=== PATIENT | female | born 1970 | race Two or more races ===

== ENCOUNTER → 2017-07-26 | Outpatient (CLI) | payer OTHER ==
[~2017-07-26] MED LIST: LIDOCAINE 1% Multi-Dose 50 ML VIAL. INJ; LIDOCAINE 2%/EPI 1:100,000 20 ML VIAL. IJ
== END | disposition home or self-care (01) ==
LOC: US 14:04
DX: C50.912 Malignant neoplasm of unspecified site of left female breast (principal); R92.8 Other abnormal and inconclusive findings on diagnostic imaging of breast
CPT/HCPCS: 19081; 19083; 19084; 76942; 77065; 88305; 88361; C1713

== ENCOUNTER 2017-11-28 08:09 | Observation (INO) | payer OTHER ==
[~2017-11-28] VITALS: Ht 162.6 cm; Wt 71.2 kg
[~2017-11-28 08:09] MED LIST changes: +HYDROmorphone 2 MG/ML VIAL IV PRN; +IV RINGERS,LACTATED 1000ML 1,000 ML IV SCH; -LIDOCAINE 1% Multi-Dose 50 ML VIAL. INJ; +LIDOCAINE 1% PF 2 ML VIAL. ID PRN; -LIDOCAINE 2%/EPI 1:100,000 20 ML VIAL. IJ; +MELA3TAB2 PO; +MULT1TAB52 PO; +ONDANSETRON PF 4 MG/2 ML VIAL. IV PRN; +PROCHLORPERAZINE 10 MG/2 ML VIAL. IV PRN; +fentaNYL PF VIAL 100 MCG/2 ML VIAL IV PRN
[2017-11-28] MEDS ORDERED: ISOSULFAN BLUE 50 MG/5 ML VIAL. SQ ONE (08:29)
[2017-11-28] MEDS ORDERED: LIDOCAINE WITH 8.4% SOD BICARB 3 ML DISP.SYRIN. INJ ONE (08:30)
[2017-11-28 08:57] LABS: U PREG PATIENT NEGATIVE (NEG)
[2017-11-28] MEDS ORDERED: MIDAZOLAM HCL/PF 2 MG/2 ML VIAL. ONE (09:10)
[2017-11-28] MEDS ORDERED: PROPOFOL 20 ML IV ONE (09:10)
[2017-11-28] MEDS ORDERED: DEXAMETHASONE SOD PHOS 20 MG/5 ML VIAL. ONE (09:10)
[2017-11-28] MEDS ORDERED: fentaNYL PF VIAL 100 MCG/2 ML VIAL ONE ×3 (09:10→13:15)
[2017-11-28] MEDS ORDERED: ONDANSETRON PF 4 MG/2 ML VIAL. ONE (09:10)
[2017-11-28] MEDS ORDERED: ePHEDrine PF IN SALINE 50 MG/5 ML DISP.SYRIN IV ONE (10:03)
--- NOTE | 2017-11-28 10:43 | RAD ---
Left breast radionuclide sentinel node localization, 11/28/2017: HISTORY: Breast cancer Under aseptic conditions and utilizing ethyl chloride spray for topical anesthesia, 1.1 mCi of filtered technetium 99m sulfur colloid mixed with 1 cc of 0.5% buffered lidocaine was injected subdermally in the periareolar region in 4 divided doses. No imaging was performed. The patient was sent to surgery in good condition. Electronically signed by: Vamsi Mills MD (11/28/2017 10:40 AM) [facility]
[2017-11-28] MEDS ORDERED: KETOROLAC 30 MG/ML INJ FOR OR. INJ ONE (11:20)
[2017-11-28] MEDS ORDERED: IV 1/2 NORMAL SALINE 1,000 ML IV SCH (12:48)
[2017-11-28] MEDS ORDERED: ONDANSETRON PF 4 MG/2 ML VIAL. IV PRN (13:00)
[2017-11-28] MEDS ORDERED: MORPHINE SULFATE 2 MG/ML VIAL. IV PRN (13:00)
[2017-11-28] MEDS ORDERED: oxyCODONE/APAP 5/325 1 TAB TABLET PO PRN (13:00)
[2017-11-28] MEDS ORDERED: 0.9 % SODIUM CHLORIDE 10 ML DISP.SYRIN. IV PRN (13:00)
--- NOTE | 2017-11-28 13:26 | PDOC4 ---
Operative Note Operative Note Operative Note: Preoperative Diagnosis: L breast cancer Postoperative Diagnosis: Same Procedure: Left simple mastectomy, sentinel lymph node biopsy, axillary dissection Surgeon: John Paul Anesthesia: Gen EBL: 100 ml Specimen: L breast, sentinel lymph node, axillary contents to pathology Drains: 19 Fr DENA drain Complications: None Indication: The patient is a 47 year old female who was recently diagnosed with multifocal left breast cancer. The plan is to proceed with a left simple mastectomy and sentinel lymph node biopsy Description: Patient was taken initially to radiology where she underwent injection of technetium sulfur colloid. She was then taken the operating room and placed supine on the operating table. Gen. anesthesia was performed. The left breast and axilla was prepped with ChloraPrep and draped in standard surgical manner. Five mL of Lymphazurin were injected deep to the nipple areolar complex. Several minutes were allowed to elapse. An elliptical tracing was made with a marker around the nipple area complex extending from the medial to lateral aspect of the breast. The superior lateral aspect of the tracing was then opened with a scalpel. Dissection was carried down toward the axillary tissues. There was an area of focal increased nuclear uptake correlating to a sentinel lymph node. Dissection in this area showed a blue staining lymphatic heading toward the node. The node was fully excised and sent to pathology. Frozen section confirmed the presence of metastatic disease in this sentinel node. We then proceeded with the full mastectomy and axillary dissection. With a scalpel the skin was opened along the prior elliptical tracing. The subcutaneous flaps were then developed starting initially with the superior flap. The skin was mobilized from the deeper breast parenchyma, and the dissection was carried superiorly to just below the level of the clavicle. In a similar manner the inferior flap was developed which included the inframammary fold. In a medial to lateral fashion the breast was taken off of the chest wall. Several blood vessels were readily controlled with cautery. A few larger vessels were ligated with 2-0 Vicryl. The breast was then fully excised and marked with a stitch at the 12 o'clock position and sent to pathology for evaluation. We then began the axillary dissection. The borders of the dissection included the axillary vein superiorly, the pectoralis muscle medially , and the latissimus laterally. In a superior to inferior manner the adipose and lymphatic contents of the axilla were mobilized from the surrounding structures. Both the thoracodorsal and long thoracic nerves were identified and stimulated appropriately. Care was taken to ensure the nerves were preserved. Several blood vessels supplying the axillary contents were also ligated with 2- 0 Vicryl. Contents were then fully excised and sent to pathology for evaluation. Hemostasis was good and no other abnormalities were identified. A 19 Mongolian round Ar drain was left in the chest wall which exited inferiorly. The subcutaneous tissue was closed with interrupted 3-0 Vicryl. The skin was approximated with a 4-0 running Monocryl suture. A sterile OpSite dressing was then applied. The patient tolerated the procedure well and was sent to the recovery room in stable condition. At the end of the case all counts were correct. JC GUERRERO MD Nov 28, 2017 13:25
[2017-11-28] MEDS: fentaNYL PF VIAL 100 MCG/2 ML VIAL IV PRN ×2 (13:40→13:54)
[2017-11-28 14:00] VITALS: BP 119/79
[2017-11-28 14:15] VITALS: BP 112/76
[2017-11-28 14:45] VITALS: BP 116/76
[2017-11-28 15:00] VITALS: BP 110/72
[2017-11-28] MEDS: MORPHINE SULFATE 2 MG/ML VIAL. IV PRN ×2 (15:08→17:44)
[2017-11-28 19:15] VITALS: BP 112/74
[2017-11-28 23:34] VITALS: BP 113/72
[2017-11-29] MEDS: oxyCODONE/APAP 5/325 1 TAB TABLET PO PRN ×2 (02:06→10:02)
[2017-11-29 03:18] VITALS: BP 104/69
[2017-11-29 07:00] VITALS: BP 104/73
--- NOTE | 2017-11-29 09:06 | DISCH ---
DISCHARGE INSTRUCTIONS Condition on Discharge Condition on Discharge: Stable Activity After Discharge Activity Instructions for Disc: Activity as tolerated Other activity instructions: keep incision dry, dressing in place Lifting Instructions after Dis: No heavy lifting, No pulling or pushing Exercise Instruction after Dis: Progress as tolerated Driving Instructions after Dis: Do not drive today Weight Bearing Status after Di: No restrictions Diet after Discharge Diet after Discharge: Regular Wound Incision Care Wound/Incision Care: Reinforce dressing PRN Other wound/incision instructi: drain care-empty 2x a day, record Contacting the DR. after DC Call your doctor for: Concerns you may have Follow-Up Follow up with: Dr Coker 1 week, call to schedule IRASEMA PULIDO APRN Nov 29, 2017 09:06
[2017-11-29] MEDS ORDERED: OXYC1TAB7 PO (09:07)
--- NOTE | 2017-11-29 09:10 | PDOC3 ---
Discharge Summary Visit Information Date of Admission: Nov 28, 2017 Date of Discharge: Nov 29, 2017 Admitting Diagnosis: left breast cancer Final Diagnosis left breast cancer Brief Hospital Course Allergies Allergies Coded Allergies Type Severity Reaction Last Updated Verified No Known Drug Allergies 11/28/17 No Vital Signs Vital Signs Date Time Temp Pulse Resp B/P (MAP) Pulse Ox O2 Delivery O2 Flow Rate FiO2 11/29/17 07:00 98.1 74 16 104/73 (83) 99 Room Air 98.1 11/29/17 03:06 10.0 Lab Results Laboratory Tests Test 11/28/17 08:43 Urine Test Negative (NEG) Brief Hospital Course Ms. Marquez is a 47 old female who presented with left breast cancer. She underwent Left simple mastectomy, sentinel lymph node biopsy, axillary dissection. Postoperatively tolerating diet, ambulating, and pain managed. Ready for discharge home. Will discharge with drain in place. Discharge Information Condition at Discharge: Stable Follow Up: Weeks (1) Disposition/Orders: D/C to Home Scheduled Melatonin (Melatonin) 3 Mg Tablet, 1 TAB PO QHS, #30 Ref 2 (Reported) Entered as Reported by: TASHIA DEJESUS on 11/27/171509 Last Taken: Unknown Dose on 11/12/17 Last Action: HELD on 11/28/17 1341 by JC GUERRERO Multivitamin (Multivitamins) 1 Each Tablet, 1 TAB PO DAILY, #90 Ref 3 (Reported) Entered as Reported by: TASHIA DEJESUS on 11/27/171509 Last Taken: Unknown Dose on 11/12/17 Last Action: HELD on 11/28/17 1341 by JC GUERRERO Scheduled PRN Oxycodone Hcl/Acetaminophen (Oxycodone-Acetaminophen 5-325) 1 Each Tablet, 1 TAB PO PRN Q4HRS PRN for MILD PAIN, 1ST CHOICE, #30 Ref 0 Prescribed by: Marysol Ballard on 11/29/17 09 MARYSOL BALLARD APRN Nov 29, 2017 09:09
== END 2017-11-29 12:25 | disposition home or self-care (01) ==
LOC: SURG 08:09 → 4 NORTH 12:48
PROVIDERS: ADMIT Surgery; ATTEND Surgery
DX: C50.912 Malignant neoplasm of unspecified site of left female breast (principal); Z85.3 Personal history of malignant neoplasm of breast
CPT/HCPCS: 19303; 38525; 38792; 81025; 96374; 96376; 97161; 97165; A7015; A9541; G0378; G0379; J0690; J1100; J1885; J2250; J2270; J2405; J2704; J3010; J7120; Q9968

== ENCOUNTER → 2017-12-25 | Outpatient (CLI) | payer OTHER ==
[2017-11-29 07:00] VITALS: BP 104/73
[~2017-12-25] MED LIST changes: -HYDROmorphone 2 MG/ML VIAL IV PRN; -IV RINGERS,LACTATED 1000ML 1,000 ML IV SCH; -LIDOCAINE 1% PF 2 ML VIAL. ID PRN; -ONDANSETRON PF 4 MG/2 ML VIAL. IV PRN; +OXYC1TAB7 PO; -PROCHLORPERAZINE 10 MG/2 ML VIAL. IV PRN; -fentaNYL PF VIAL 100 MCG/2 ML VIAL IV PRN
--- NOTE | 2017-12-25 18:28 | CARD ---
MR#: [id number] Date of Study: 12/25/2017 Ordering Physician: ELIZABETH CHÁVEZ, Referring Physician: ELIZABETH CHÁVEZ, Tech: Mohini Jacobs APPROVED REPORT EXAM: Two-dimensional and M-mode echocardiogram with Doppler and color Doppler. Other Information Quality : AverageHR: 78bpm INDICATION Fatigue 2D DIMENSIONS RVDd2.5 (2.9-3.5cm)Left Atrium(2D)2.9 (1.6-4.0cm) IVSd1.0 (0.7-1.1cm)Aortic Root(2D)3.0 (2.0-3.7cm) LVDd4.9 (3.9-5.9cm)LVOT Diameter2.1 (1.8-2.4cm) PWd1.1 (0.7-1.1cm)LVDs3.2 (2.5-4.0cm) FS (%) 35.3 %SV73.2 ml LVEF(%)64.0 (>50%) Aortic Valve AoV Peak Zane.127.4cm/sAoV VTI22.5cm AO Peak GR.6.5mmHgLVOT Peak Zane.115.9cm/s LVOT VTI 20.98cmAO Mean GR.3mmHg PUSHPA (VMAX)2.81de4NAN (VTI)3.37cm2 Mitral Valve MV E Zfghpgph75.1cm/sMV DECEL WIYL672ut MV A Ohtuxzxe34.1cm/sMV QIP52rc E/A Ratio1.3MVA (PHT)4.16cm2 TDI E/Lateral E'7.4E/Medial E'9.3 Pulmonary Valve PV Peak Tvxxgldh337.1cm/sPV Peak Grad.6mmHg Tricuspid Valve TR P. Ejmvungt621nw/sRAP PBNJJUZA90cuTt TR Peak Gr.20mmHg Pulmonary Vein S1 Vytgwmex35.2cm/sD2 Fgqqxlqc82.1cm/s PVa [id number] LEFT VENTRICLE The left ventricle is normal size. There is borderline concentric left ventricular hypertrophy. The l eft ventricular systolic function is normal and the ejection fraction is within normal range. The Eje ction Fraction is 64%. Transmitral Doppler flow pattern is Grade II-pseudonormal filling dynamics. RIGHT VENTRICLE The right ventricle is normal size. There is normal right ventricular wall thickness. The right ventr icular systolic function is normal. ATRIA The left atrium size is normal. The right atrium size is normal. AORTIC VALVE The aortic valve is normal in structure Doppler and Color Flow revealed trace aortic regurgitation. C alculated aortic valve area is 3.5 cm2 with maximum pressure gradient of 7 mmHg and mean pressure gra dient of 4 mmHg. MITRAL VALVE The mitral valve is normal in structure Doppler and Color-flow revealed trace mitral regurgitation. TRICUSPID VALVE The tricuspid valve is normal in structure Doppler and Color Flow revealed trace tricuspid regurgitat ion. PULMONIC VALVE The pulmonic valve is not well visualized. Doppler and Color Flow revealed trace pulmonic valvular re gurgitation. GREAT VESSELS The aortic root is normal in size. The IVC is normal in size and collapses >50% with inspiration. PERICARDIAL EFFUSION There is no evidence of significant pericardial effusion. Critical Notification Critical Value: No <Conclusion> The left ventricular systolic function is normal and the ejection fraction is within normal range. T he Ejection Fraction is 64%. Transmitral Doppler flow pattern is Grade II-pseudonormal filling dynamics. There is borderline concentric left ventricular hypertrophy. The left atrium size is normal. The right atrium size is normal. Doppler and Color Flow revealed trace aortic regurgitation. Doppler and Color-flow revealed trace mitral regurgitation. Doppler and Color Flow revealed trace tricuspid regurgitation. The pulmonic valve is not well visualized. There is no evidence of significant pericardial effusion. Signed by : Darwin Le MD Electronically Approved : 12/25/2017 18:28:01
== END | disposition home or self-care (01) ==
LOC: ECHO 10:31
PROVIDERS: ATTEND Internal Medicine Hematology & Oncology
DX: I51.7 Cardiomegaly (principal); Z85.3 Personal history of malignant neoplasm of breast
CPT/HCPCS: 93306

== ENCOUNTER 2017-12-26 07:09 | Day surgery (SDC) | payer OTHER ==
[~2017-12-26] VITALS: Ht 162.6 cm; Wt 71.2 kg
[~2017-12-26 07:09] MED LIST changes: +HEPARIN SODIUM 5,000 UNIT in IV NORMAL SALINE 500ML BAG 500 ML IRR ONE; +HYDROmorphone 2 MG/ML VIAL IV PRN; +IV RINGERS,LACTATED 1000ML 1,000 ML IV SCH; +LIDOCAINE 1% PF 2 ML VIAL. ID PRN; +LIDOCAINE 1% PF 30 ML VIAL. ONE; +MORPHINE SULFATE 2 MG/ML VIAL. IV PRN; +ONDANSETRON PF 4 MG/2 ML VIAL. IV PRN; +PROCHLORPERAZINE 10 MG/2 ML VIAL. IV PRN; +fentaNYL PF VIAL 100 MCG/2 ML VIAL IV PRN
[2017-12-26] MEDS ORDERED: LIDOCAINE 1% PF 5 ML VIAL. ONE (07:40)
[2017-12-26] MEDS ORDERED: DEXAMETHASONE SOD PHOS 20 MG/5 ML VIAL. ONE (07:40)
[2017-12-26] MEDS ORDERED: ONDANSETRON PF 4 MG/2 ML VIAL. ONE (07:40)
[2017-12-26] MEDS ORDERED: PROPOFOL 20 ML IV ONE (07:40)
[2017-12-26] MEDS ORDERED: MIDAZOLAM HCL/PF 2 MG/2 ML VIAL. ONE (07:41)
[2017-12-26] MEDS ORDERED: fentaNYL PF VIAL 100 MCG/2 ML VIAL ONE ×2 (07:41→09:58)
[2017-12-26] MEDS ORDERED: ePHEDrine PF IN SALINE 50 MG/5 ML DISP.SYRIN IV ONE (08:39)
[2017-12-26] MEDS ORDERED: SEVOFLURANE 61 TO 120 MINUTES. IH ONE (09:00)
[2017-12-26] MEDS ORDERED: BUPIVAC MPF-EPI 0.5%-1:200000 30 ML VIAL. ONE (09:35)
--- NOTE | 2017-12-26 09:40 | PDOC4 ---
Operative Note Operative Note Operative Note: Preoperative Diagnosis: Breast cancer Postoperative Diagnosis: Same Procedure: Placement of Power Port-A-Cath using SonoSite guidance Surgeon: John Paul Anesthesia: Gen. EBL: 10 mL Specimen: None Drains: None Complications: None Indication: The patient is a 47 year old female who was recently diagnosed with breast cancer. A request was made for placement of a Port-A-Cath to allow for chemotherapy treatment. The details and risks of the procedure were discussed. The risks include bleeding, infection, vessel injury, pneumothorax, pain, anesthetic risk, port, catheter or tubing malfunction or dysfunction, potential need for additional surgery or procedure. The patient understands and would like to proceed. Description: The patient was placed supine on the operating table and general anesthesia was performed. The bilateral neck and chest were prepped with ChloraPrep and draped in a standard surgical manner. With SonoSite ultrasound guidance the right internal jugular vein was readily identified and appeared patent. Entry was made into the vein with the skinny introducer needle under ultrasound guidance. The skinny guidewire passed readily into the central venous system. A small incision was made at the skin exit site. The skinny sheath was then placed over the guidewire. The larger guidewire was then placed within the sheath into the central venous system. Intraoperative fluoroscopy confirmed good position of the guidewire in the central venous system. The dilator and sheath were then placed over the guidewire. The catheter portion was then inserted into the central venous system and visualized using fluoroscopy. A separate right upper chest skin incision was made with a scalpel. A subcutaneous pocket was developed with cautery of sufficient size to accommodate the port. The catheter was then tunneled subcutaneously to the level of the newly formed pocket. Using fluoroscopy the catheter was positioned with the tip in the distal superior vena cava. The catheter was then cut and assembled to the port. The port was then secured to the chest wall with two 2-0 Prolene sutures. Using the Garcia needle the port readily aspirated and flushed without difficulty. Fluoroscopy confirmed good positioning of the catheter with no twists or kinks. The subcutaneous tissue was approximated with 3-0 Vicryl. The skin was then closed with 4-0 Monocryl. A sterile OpSite dressing was then applied. The patient tolerated the procedure well and was sent to the recovery room in stable condition. At the end of the case all counts were correct. JC GUERRERO MD Dec 26, 2017 09:40
--- NOTE | 2017-12-26 09:42 | DISCH ---
DISCHARGE INSTRUCTIONS Condition on Discharge Condition on Discharge: Stable Activity After Discharge Activity Instructions for Disc: Resume previous activity Diet after Discharge Diet after Discharge: Regular Wound Incision Care Wound/Incision Care: Reinforce dressing PRN, Other, see below (keep dressings clean and dry) Follow-Up Follow up with: Oncology, call for appointment Follow Up With: Dr Guerrero in 2 weeks call for appt [phone] JC GUERRERO MD Dec 26, 2017 09:42
--- NOTE | 2017-12-26 10:10 | RAD ---
PORTABLE CHEST 1V dated 12/26/2017 9:40 AM. Comparison: None. Clinical Indication: POST PORT A CATH PLACEMENT Findings: Single upright portable exam performed. Heart and mediastinal contours within normal limits. Right internal jugular port with tip projected to the level of the upper SVC. Prominent perihilar interstitial markings, nonspecific. No consolidation or pleural effusion. No pneumothorax. Impression: Right-sided port with no evidence of pneumothorax. Electronically signed by: Roe Massey MD (12/26/2017 10:06 AM) [id number]
[2017-12-26] MEDS ORDERED: oxyCODONE/APAP 5/325 1 TAB TABLET ONE (10:44)
[2017-12-26] MEDS ORDERED: oxyCODONE/APAP 5/325 1 TAB TABLET PO ONE (10:45)
[2017-12-26 11:20] VITALS: BP 122/78
== END 2017-12-26 11:20 | disposition home or self-care (01) ==
LOC: SURG 07:09
PROVIDERS: ATTEND Surgery
DX: C50.919 Malignant neoplasm of unspecified site of unspecified female breast (principal); Z79.899 Other long term (current) drug therapy; Z90.10 Acquired absence of unspecified breast and nipple
CPT/HCPCS: 36561; 71045; 76937; 77001; A7015; C1788; J0690; J1100; J1644; J2250; J2405; J2704; J3010; J3490; J7040; 36556